=== PATIENT | female | born 1935 | race Caucasian/White ===

== ENCOUNTER 2017-06-03 07:35 | Inpatient (IN) | payer OTHER ==
--- NOTE | 2017-05-30 21:34 | PDHPUP ---
History & Physical Update H&P update statement: This history and physical update is based on an assessment of the patient which was completed after admission or registration (within 24 hours), but prior to the surgery/procedure. H&P update: H&P reviewed & patient examined, no change in patient's condition since H&P completed
--- NOTE | 2017-05-30 22:05 | GHP ---
[f rep st] HISTORY AND PHYSICAL CURRENT COMPLAINT: Right hip pain. HISTORY OF PRESENT ILLNESS: The patient is an 82-year-old female, who had previously undergone a right total hip arthroplasty over the last several months. She has developed pain around the groin and around the acetabulum. Bone scan suggests she may have loosening. She appears to have a lucent line around the cup. She would like it replaced. DRUG ALLERGIES: Include sulfa medications. CURRENT MEDICATIONS: Include alendronate, amiloride/hydrochlorothiazide, clobetasol, duloxetine, gabapentin, levothyroxine, quinapril, Restoril, tizanidine, and Voltaren. PRIOR MEDICAL PROBLEMS: Include asthma, arthritis, osteopenia, and thyroid problems. PRIOR SURGERIES: Include left total hip, right total knee, left total knee, left ankle, and broken arm. SOCIAL HISTORY: She has never been a smoker and a social drinker. PHYSICAL EXAMINATION: EYES: Pupils equal, round, and reactive to light. CHEST : Clear to auscultation. HEART: Regular rate and rhythm. ABDOMEN: Soft and nontender. MUSCULOSKELETAL: She has no significant pain to range of motion through the hip. She has 5/5 strength to hip flexion, extension, internal and external rotation. IMAGING STUDIES: X-ray exam reveals lucency around the superior portion of the acetabular cup. ASSESSMENT AND PLAN: Patient is status post right acetabular component loosening. The plan is to take her to the operating room to undergo an acetabular revision. /[id number]/MODL MTDD
[~2017-06-03 07:35] MED LIST: ACETAMINOPHEN 500 MG TAB PO ONE; PREGABALIN 150 MG CAP PO ONE; ROPIVACAINE 0.2% 80 MG, EPINEPHrine 0.2 MG, KETOROLAC TROMETHAMINE 30 MG, morphINE 10 M... IU ONE; TRANEXAMIC ACID 3,000 MG in NS (SYRINGE) 50 ML IRR ONE; ceFAZolin 2 GM/SWFI 2 GM/20 ML SYR IVP ONE
[2017-06-03] MEDS ORDERED: LR 1,000 ML IV ONE (08:28)
[2017-06-03 08:49] LABS: PLATELET COUNT 304 10^3/uL (150-400)
--- NOTE | 2017-06-03 08:52 | CPEKG ---
Heart Rate: 82 RR Interval: 732 P-R Interval: 172 QRSD Interval: 80 QT Interval: 376 QTC Interval: 439 P [place]: 57 QRS [place]: -9 T Wave [place]: 0 EKG Severity - NORMAL ECG - EKG Impression: SINUS RHYTHM Electronically Signed By: Husam Paige 04-Jun-2017 11:45:27
[2017-06-03] MEDS ORDERED: BACITRACIN 50,000 UNITS/10 ML SYR IRR ONE (08:56)
[2017-06-03] MEDS ORDERED: CALCIUM CHLORIDE 1 GM/10 ML INJ ONE (08:57)
[2017-06-03] MEDS ORDERED: THROMBIN (BOVINE) 5,000 UNIT VIAL TP ONE (08:57)
[2017-06-03] MEDS ORDERED: BUPIVACAINE/EPI 0.5% 30 ML SDV ONE ×2 (08:57→09:59)
[2017-06-03] MEDS ORDERED: TRANEXAMIC ACID 3,000 MG/50 ML BAG IRR ONE (08:57)
--- NOTE | 2017-06-03 09:23 | PDHPUP ---
History & Physical Update H&P update statement: This history and physical update is based on an assessment of the patient which was completed after admission or registration (within 24 hours), but prior to the surgery/procedure. H&P update: H&P reviewed & patient examined, no change in patient's condition since H&P completed, changes noted
--- NOTE | 2017-06-03 09:38 | PDANEPAE ---
ANE History of Present Illness here for revision total hip ANE Past Medical History - Cardiovascular History Hx Hypertension: Yes Hx Arrhythmias: No Hx Chest Pain: No Hx Coronary Artery / Peripheral Vascular Disease: No Hx CHF / Valvular Disease: No Hx Palpitations: No - Pulmonary History Hx COPD: No Hx Asthma/Reactive Airway Disease: No Hx Recent Upper Respiratory Infection: No Hx Oxygen in Use at Home: No Hx Sleep Apnea: No Sleep Apnea Screening Result - Last Documented: Negative - Neurologic History Hx Cerebrovascular Accident: No Hx Seizures: No Hx Dementia: No - Endocrine History Hx Diabetes: No Endocrine History Comment: HYPOTHYROID - Renal History Hx Renal Disorders: No - Liver History Hx Hepatic Disorders: No - Neurological & Psychiatric Hx Hx Neurological and Psychiatric Disorders: No - Cancer History Hx Cancer: No - Congenital Disorder History Hx Congenital Disorders: No - GI History Hx Gastrointestinal Disorders: No - Other Health History Other Health History: INTERMITTENTLY ECZEMA NOTHING CURRENTLY - Chronic Pain History Chronic Pain: Yes (RT HIP) - Surgical History Prior Surgeries: RT TOTAL HIP 12/07/2015. TONSILLECTOMY. UTERINE REPOSITING/ APPY. RT ARM ORIF WITH POST HARDWARE REMVL. [place] TOTAL KNEE 2002. LT TOTAL HIP 1998 ANE Review of Systems Review of Systems: - Exercise capacity Exercise capacity: >=4 METS ANE Patient History - Allergies Allergies/Adverse Reactions: sulfamethoxazole [From Bactrim] Allergy (Verified 05/30/17 13:34) Rash trimethoprim [From Bactrim] Allergy (Verified 05/30/17 13:34) Rash - Home Medications Home Medications: Acetaminophen [Tylenol ES 500 mg (*)] 1,000 mg PO HS 05/30/17 [Last Taken ] Acetaminophen [Tylenol ES 500 mg (*)] 1,500 mg PO DAILY 05/30/17 [Last Taken 08/15] Acetaminophen [Tylenol ES 500 mg (*)] 500 mg PO DAILY@14 05/30/17 [Last Taken ] Alendronate Sodium [Fosamax 70 MG (*)] 70 mg PO SA@0700 05/30/17 [Last Taken 07/16] Amiloride [Amiloride 5 MG (RX)] 2.5 mg PO DAILY 05/30/17 [Last Taken 06/02/17] Aspirin [Aspirin 81mg (*)] 81 mg PO DAILY 05/30/17 [Last Taken 06/02/17] Cholecalciferol Vit D3 [Vitamin D3 (*)] 1,000 units PO DAILY 05/30/17 [Last Taken 06/02/17] Gabapentin [Neurontin 300 MG (*)] 300 mg PO HS 05/30/17 [Last Taken 06/02/17] Herbals/Supplements -Info Only 1 ea PO DAILY 05/30/17 [Last Taken 06/02/17] Levothyroxine [Synthroid 112 mcg (*)] 112 mcg PO DAILY06 05/30/17 [Last Taken ] Melatonin [Melatonin 5 mg] 15 mg PO HS 05/30/17 [Last Taken 06/02/17] Quinapril HCl 10 mg PO DAILY 05/30/17 [Last Taken 06/02/17] - NPO status NPO Since - Liquids (Date): 06/03/17 NPO Since - Liquids (Time): 06:30 NPO Since - Solids (Date): 06/02/17 NPO Since - Solids (Time): 18:00 - Anes Hx Anes Hx: no prior problems - Smoking Hx Smoking Status: Never smoked - Alcohol Use Alcohol Use: Rarely - Family Anes Hx Family Anes Hx: none ANE Labs/Vital Signs - Labs Result Diagrams: 06/03/17 08:24 06/03/17 08:24 - Vital Signs Blood Pressure: 136/82 Heart Rate: 90 Respiratory Rate: 14 O2 Sat (%): 93 Height: 162.56 cm Weight: 75.296 kg ANE Physical Exam - Airway Neck exam: FROM Mallampati Score: Class 2 Mouth exam: normal dental/mouth exam - Pulmonary Pulmonary: no respiratory distress, clear to auscultation - Cardiovascular Cardiovascular: regular rate and rhythym, no murmur, rub, or gallop - ASA Status ASA Status: II ANE Anesthesia Plan Anesthesia Plan: GA with mask, spinal Total IV Anesthesia: Yes
[2017-06-03] MEDS ORDERED: PROPOFOL/EMULSION 500 MG/50 ML BOTTLE IV ONE ×3 (09:43→11:47)
[2017-06-03] MEDS ORDERED: ceFAZolin 2 GM/SWFI 20 ML SYR IVP ONE (09:51)
[2017-06-03] MEDS ORDERED: POLYMYXIN B SULFATE 500,000 UNIT/10 ML SYR IRR ONE (10:43)
[2017-06-03] MEDS ORDERED: TEMAZEPAM 15 MG CAP PO PRN (12:31)
[2017-06-03] MEDS ORDERED: diphenhydrAMINE 25 MG CAP PO PRN (12:31)
[2017-06-03] MEDS ORDERED: oxyCODONE IR 5 MG TAB PO PRN (12:31)
[2017-06-03] MEDS ORDERED: ONDANSETRON 4 MG/2 ML VIAL IVP PRN ×2 (12:31→12:41)
[2017-06-03] MEDS ORDERED: PROMETHAZINE HCL 25 MG/ML INJ IVP PRN (12:31)
[2017-06-03] MEDS ORDERED: ONDANSETRON DISINTEGRATING 4 MG TAB PO PRN (12:31)
[2017-06-03] MEDS ORDERED: LACTULOSE 20 GM/30 ML UDCUP PO PRN (12:31)
[2017-06-03] MEDS ORDERED: BISACODYL 10 MG SUPP PR PRN (12:31)
[2017-06-03] MEDS ORDERED: POLYETHYLENE GLYCOL 3350 17 GM PKT PO PRN (12:31)
[2017-06-03] MEDS ORDERED: PROMETHAZINE HCL 25 MG SUPPR PR PRN (12:31)
[2017-06-03] MEDS ORDERED: TAPENTADOL HCL 50 MG TAB PO PRN (12:31)
[2017-06-03] MEDS ORDERED: MAGNESIUM HYDROXIDE 30 ML UDCUP PO PRN (12:31)
[2017-06-03] MEDS ORDERED: DIPHENOXYLATE/ATROPINE LOMOTIL 1 TAB PO PRN (12:31)
[2017-06-03] MEDS ORDERED: METOCLOPRAMIDE 10 MG/2 ML VIAL IVP PRN (12:31)
[2017-06-03] MEDS ORDERED: CYCLOBENZAPRINE 10 MG TAB PO PRN (12:31)
--- NOTE | 2017-06-03 12:31 | POSTOPPROG ---
Post Op Note Date of Operation: 06/03/17 Surgeon: Jania Vasquez Pit Tanner: coltrain Anesthesiologist: nick Anesthesia: Epidural Pre-op Diagnosis: r hip aseptic loosening Procedure: r taj cup revision with fluoro Inf/Abcess present in the surg proc area at time of surgery?: No Depth: Deep Incisional (Fascial) EBL: 100-500
[2017-06-03] MEDS ORDERED: ACETAMINOPHEN 500 MG TAB PO PRN (12:41)
[2017-06-03] MEDS ORDERED: NALOXONE HCL 0.4 MG/ML INJ IVP PRN (12:41)
[2017-06-03] MEDS ORDERED: fentaNYL 100 MCG/2 ML INJ IVP PRN (12:41)
[2017-06-03] MEDS ORDERED: HYDROmorphONE/DILAUDID 1 MG/ML INJ IVP PRN (12:41)
[2017-06-03] MEDS ORDERED: HYDROCODONE/APAP 5/325 TAB PO PRN (12:41)
[2017-06-03] MEDS ORDERED: OXYCODONE/APAP 5/325 TAB PO PRN (12:41)
--- NOTE | 2017-06-03 12:42 | POSTANESTH ---
Post Anesthetic Evaluation Cardiovascular Status: Normal, Stable, Similar to Pre-Op Cond Respiratory Status: Normal, Stable, Similar to Pre-op Cond. Level of Consciousness/Mental Status: Can Participate in Eval, Alert and Oriented Pain Control: Adequate, Prn Tx Ordered Nausea/Vomiting Control: Adequate, Prn Tx Ordered Complications Possibly Related to Anesthesia: None Noted
[2017-06-03] MEDS ORDERED: LR 1,000 ML IV SCH (13:00)
--- NOTE | 2017-06-03 14:04 | GOP ---
[f rep st] OPERATIVE REPORT DATE OF OPERATION: 06/03/2017 SURGEON: Jania Vasquez MD GI ASST: Christofer Vanessa, CSFA, LSA. ANESTHESIA: By epidural plus sedation. PREOPERATIVE DIAGNOSIS: Right total hip arthroplasty, acetabular aseptic loosening. POSTOPERATIVE DIAGNOSIS: Right total hip arthroplasty, acetabular aseptic loosening. PROCEDURE PERFORMED: Right total hip arthroplasty revision with cup revision, procedure was done wit h fluoroscopy. FINDINGS: INDICATIONS: The patient is an 82-year-old female who had previously undergone a right total hip art hroplasty approximately 18 months ago. Developed pain into the groin. Bone scan revealed possibilit y of loosening of the acetabular component and x-rays have subsequently showed a small lucent layer a t the superior portion of the cup. It was therefore decided to do a revision of the cup. DESCRIPTION OF PROCEDURE: Patient brought to the operating room after the right side had been identi fied as correct side by the patient, nurse and physician. Once in the operating room, she was given epidural nerve block and then placed on a traction table with a well-padded peroneal post and both le gs placed in appropriate leg holders. The right hip and flank were then sterilely prepped and draped in usual fashion using GSI solution, it was prepped and draped. Using her prior scar, linear incisi on was made on the anterior lateral portion of the thigh starting inferior and lateral to the ASIS an d heading in a 15-degree posterior direction, with sharp dissection carried down through the skin and subcutaneous layers, with bleeding controlled using electrocautery. Sharp incision was made through the fascia overlying the TFL, which was significantly scarred down. Gentle blunt dissection was car ried down along the fascial sheath until finding the anterior capsule. There was a large scarred por tion of the anterior capsule and this was removed in order to gain access in the acetabulum. Once in the acetabulum, the femoral component was able to be dislocated easily, brought to the side. In removing the polyethylene shell, it was noted the cup removed fairly easily, suggesting that it w as significantly loose. Once the polyethylene was removed, the 2 screws as well as the manhole cover were removed and then the cup itself was removed. She was noted to have fibrous ingrowth in the sup erior portion of the cup, but no other bony ingrowth was noted. The soft tissue was removed using a curette from around the acetabular dome. In the base, she was noted to have bone at the base, where the pulvinar would normally be, on the anterior portion of the hip. Sequential reamers were then use d starting at a size 50, and extending to a size 53 until achieving some bleeding bone. Once bleedin g bone had been achieved, the 53 trial was noted to fit securely. Therefore, a size 54 Trident Trita nium hemispheric shell was put into place. Four screws were then placed into the cup, 2 superiorly, 1 posteriorly and 1 inferiorly; each screw having excellent purchase. Position was checked under flu oroscopy and noted to fit securely. A 32 x 54 polyethylene insert was then put into place. The femo ral head was trialed, noted to have good leg length compared to preop. Therefore, the old head was r emoved and a new 32+ 8 femoral head was put into place. Once completed, the wound was thoroughly irrigated with antibiotic solution. Joint cocktail was inje cted in the posterior capsule, the anterior portion of the acetabulum. Tranexamic acid was poured in , irrigated through the wound. The fascia overlying the TFL was then closed and plasmagel was then i njected in the fascial sheath. An 0 Vicryl and 2-0 Vicryl suture was then used for the subcutaneous layers and a 3-0 V-Loc suture in a running subcuticular stitch was used for the skin. The wound was dressed with Steri-Strips, Xeroform, 4 x 4's, and Tegaderm. She was completely undraped in the opera ting room. Peroneal post was removed. She was then transferred onto a bed, and sent to [facility] in good condition. /[id number]/MODL
--- NOTE | 2017-06-03 14:48 | PDMN ---
Medical Necessity Medical necessity: IP surgery per [facility] cpt 97198 R ZULEIMA revision
[2017-06-03] MEDS: LISINOPRIL 10 MG TAB PO SCH (15:57)
[2017-06-03] MEDS: ACETAMINOPHEN 325 MG TAB PO SCH (18:19)
[2017-06-03] MEDS: traMADol 50 MG TAB PO SCH (18:19)
[2017-06-03] MEDS: ceFAZolin 2 GM/SWFI 2 GM/20 ML SYR IVP SCH (18:22)
[2017-06-03 19:49] VITALS: RESP 16
[2017-06-03] MEDS ORDERED: GABAPENTIN 300 MG CAP PO SCH (21:00)
[2017-06-03] MEDS: FAMOTIDINE 20 MG TAB PO SCH (21:03)
[2017-06-03] MEDS: SENNOSIDES/DOCUSATE SODIUM TAB PO SCH (21:03)
[2017-06-04] MEDS: ACETAMINOPHEN 325 MG TAB PO SCH ×3 (00:06→14:38)
[2017-06-04] MEDS: traMADol 50 MG TAB PO SCH ×3 (00:06→14:55)
[2017-06-04] MEDS: ceFAZolin 2 GM/SWFI 2 GM/20 ML SYR IVP SCH (02:35)
[2017-06-04] MEDS ORDERED: LEVOTHYROXINE 112 MCG TAB PO SCH (06:00)
[2017-06-04] MEDS ORDERED: QUINAPRIL HCL 10 MG PO SCH (09:00)
[2017-06-04] MEDS ORDERED: CHOLECALCIFEROL VIT D3 1,000 UNITS TAB PO SCH (09:00)
[2017-06-04] MEDS ORDERED: RIVAROXABAN 10 MG TAB PO SCH (09:00)
[2017-06-04] MEDS ORDERED: AMILORIDE 5 MG TAB PO SCH (09:00)
--- NOTE | 2017-06-04 10:37 | SOAPPROG ---
SOAP Progress Note Assessment/Plan: Assessment: POD 1 Plan: - will work w PT this afternoon, if stable and BP is not an issue she can go home - she prefers to use tylenol only for pain control 06/04/17 10:36 Subjective: Doing well, has some dizziness w the tramadol, says she typically reacts to it severely. Did well with PT today Objective: Vital Signs Temp Pulse Resp BP Pulse Ox 36.6 C 101 H 16 96/59 L 94 06/04/17 08:00 06/04/17 08:00 06/04/17 08:00 06/04/17 08:00 06/04/17 08:00 Microbiology 06/03/17 11:02 Gram Stain - Final Hip - Tissue 06/03/17 10:47 Gram Stain - Final Hip - Swab 06/03/17 11:24 Gram Stain - Final Hip - Eswab Laboratory Results 06/04/17 06:30 06/03/17 08:24 06/03/17 06/04/17 06/05/17 05:59 05:59 05:59 Intake Total 2390 Output Total 1200 Balance 1190 dressing cdi, hip 90 pcnt ROM, compartments soft, NVI - Time Spent With Patient Time Spent With Patient: 15 - Pending Discharge Pending Discharge Within 24 Hours: Yes Pending Discharge Within 48 Hours: No Pending Discharge Date: 06/05/17 Pending Discharge Time: 11:00 ICD10 Worksheet Patient Problems: Problems Problem Status Onset Arthritis of right hip Acute - ICD10 Problem Qualifiers (1) Arthritis of right hip
[2017-06-04] MEDS ORDERED: NS 500 ML IV ONE (10:40)
--- NOTE | 2017-06-04 10:44 | PDIAF ---
- Diagnosis Code Status: Full Code - Medication Management Discharge Medications: Medications to Continue on Transfer Acetaminophen [Tylenol ES 500 mg (*)] 1,000 mg PO HS 05/30/17 [Last Taken ] Acetaminophen [Tylenol ES 500 mg (*)] 1,500 mg PO DAILY 05/30/17 [Last Taken 08/15] Acetaminophen [Tylenol ES 500 mg (*)] 500 mg PO DAILY@14 05/30/17 [Last Taken ] Alendronate Sodium [Fosamax 70 MG (*)] 70 mg PO SA@0700 05/30/17 [Last Taken 07/16] Aspirin [Aspirin 81mg (*)] 81 mg PO DAILY 05/30/17 [Last Taken 06/02/17] Cholecalciferol Vit D3 [Vitamin D3 (*)] 1,000 units PO DAILY 05/30/17 [Last Taken 06/02/17] Gabapentin [Neurontin 300 MG (*)] 300 mg PO HS 05/30/17 [Last Taken 06/02/17] Herbals/Supplements -Info Only 1 ea PO DAILY 05/30/17 [Last Taken 06/02/17] Levothyroxine [Synthroid 112 mcg (*)] 112 mcg PO DAILY06 05/30/17 [Last Taken ] Melatonin [Melatonin 5 mg] 15 mg PO HS 05/30/17 [Last Taken 06/02/17] Quinapril HCl 10 mg PO DAILY 05/30/17 [Last Taken 06/02/17] aMILoride/HYDROCHLOROTHIAZIDE [Amiloride HCl-Hctz 5-50 mg Tab] 0.5 each PO DAILY 06/03/17 [Last Taken Unknown] Acetaminophen [Tylenol 325mg (*)] 650 mg PO Q6HRS tab 06/04/17 [Last Taken Unknown] Rivaroxaban [Xarelto 10mg (*)] 10 mg PO DAILY tab 06/04/17 [Last Taken Unknown] Discharge Medications: Refer to the Discharge Home Medication list for PRN reason. PICC Care - Routine: N/A - Orders Services needed: Physical Therapy Diet Recommendation: no restrictions on diet Diet Texture: Regular Texture Diet Prajapati: Not applicable Date to Remove Sutures/[place]: 06/19/17 Activity/Weight Bearing Restrictions: wbat - Follow Up Care Current Providers and Referrals: DC MCKEON [Other]
[2017-06-04] MEDS: SENNOSIDES/DOCUSATE SODIUM TAB PO SCH (10:53)
[2017-06-04] MEDS: FAMOTIDINE 20 MG TAB PO SCH (10:54)
[2017-06-04] MEDS: LISINOPRIL 10 MG TAB PO SCH (11:39)
[2017-06-04 11:43] VITALS: PULSE 85
[2017-06-04 11:51] VITALS: BP 91/56; TEMP 98; O2SAT 95
--- NOTE | 2017-06-04 13:52 | ASMTCMCOM ---
CM Note CM Note Notes: Pt had R total hip. Pt and spouse currently staying in accessible hotel until condo is built. PT/OT rec home. Pt medically stable for d/c, no CM d/c needs identified. Date Signed: 06/04/2017 01:51 PM Electronically Signed By:TISH Lopez
[2017-06-07] MEDS ORDERED: ALENDRONATE SODIUM 70 MG TAB PO SCH (07:00)
== END 2017-06-04 15:50 | disposition home or self-care (01) | DRG 468 ==
LOC: F3N 07:35
PROVIDERS: ADMIT Orthopaedic Surgery; ATTEND Orthopaedic Surgery
PROC: 0SPB0JZ Removal of Synthetic Substitute from Left Hip Joint, Open Approach (ICD-10-PCS; principal; 2017-06-03 09:45)
PROC: 0SRB0JZ Replacement of Left Hip Joint with Synthetic Substitute, Open Approach (ICD-10-PCS; principal; 2017-06-03 09:45)
DX: T84.031A Mechanical loosening of internal left hip prosthetic joint, initial encounter (principal); J45.909 Unspecified asthma, uncomplicated; M85.80 Other specified disorders of bone density and structure, unspecified site; Z96.653 Presence of artificial knee joint, bilateral; Z96.662 Presence of left artificial ankle joint; I10 Essential (primary) hypertension; E03.9 Hypothyroidism, unspecified
CPT/HCPCS: 97116-GP; 97161-GP; 97165-GO; 97530-GP; C1713; G8978-GP-CI; G8979-GP-CI; G8987-GO-CI; G8988-GO-CI; G8989-GO-CI; J0171; J0690; J1885; J2270; J2704; J2795